=== PATIENT | male | born 1940 | race Caucasian/White ===

== ENCOUNTER → 2017-12-06 | Outpatient (CLI) | payer MEDICARE, BC ==
[~2017-12-06] MED LIST: ACET500T68 PO; FURO-47 PO; METO25TA23 PO; NAPR220C12 PO; PANT40TA65 PO; SPIR25TA80 PO; TAMS0.4C70 PO; [UNRECOGNIZED DRUG - CODE] PO
[2017-12-06 13:31] LABS: PLATELET COUNT, AUTOMATED 302 K/uL (150-450)
== END ==
LOC: LAB 12:38
PROVIDERS: ATTEND Family Medicine
DX: I10 Essential (primary) hypertension (principal)
CPT/HCPCS: 36415; 82040; 82247; 82310; 82374; 82435; 82565; 82947; 84075; 84132; 84155; 84295; 84450; 84460; 84520; 85025

== ENCOUNTER → 2018-05-16 | Outpatient (CLI) | payer MEDICARE, BC ==
[~2018-05-16] MED LIST changes: +FLU180SY11 IM; +PANT20TA27 PO
[2018-05-16 17:16] LABS: PLATELET COUNT, AUTOMATED 348 K/uL (150-450)
== END ==
LOC: LAB 16:46
PROVIDERS: ATTEND Family Medicine
DX: R42 Dizziness and giddiness (principal); W19.XXXA Unspecified fall, initial encounter
CPT/HCPCS: 36415; 82040; 82247; 82310; 82374; 82435; 82565; 82947; 84075; 84132; 84155; 84295; 84450; 84460; 84520; 85025

== ENCOUNTER → 2018-10-03 | Outpatient (CLI) | payer MEDICARE, BC | LOC: LAB 15:00 | PROVIDERS: ATTEND Family Medicine | DX: Z85.46 Personal history of malignant neoplasm of prostate (principal) | CPT/HCPCS: 36415; 84153 ==